=== PATIENT | male | born 1970 | race Caucasian/White ===

== ENCOUNTER 2021-05-23 11:27 | Inpatient (IN) | payer OTHER ==
[2021-05-23 12:14] VITALS: BMI 19.2
[2021-05-23] MEDS ORDERED: ONDANSETRON *ODT* 4 MG TABLET ONE (12:42)
[2021-05-23] MEDS ORDERED: ONDANSETRON *ODT* 4 MG TABLET SL PRN (13:22)
[2021-05-23] MEDS ORDERED: diazePAM 5 MG TABLET PO PRN (13:22)
[2021-05-23] MEDS ORDERED: MAG HYDROX/AL HYDROX/SIMETH 30 ML UNIT-DOSE CUP PO PRN (13:22)
[2021-05-23] MEDS ORDERED: NICOTINE POLACRILEX 2 MG GUM BUC PRN (13:22)
[2021-05-23] MEDS ORDERED: MENTHOL/PHENOL 1 EACH UD MM PRN (13:22)
[2021-05-23] MEDS ORDERED: MAGNESIUM CITRATE 300 ML BOTTLE PO PRN (13:22)
[2021-05-23] MEDS ORDERED: BISMUTH SUBSALICYLATE 524 MG/30 ML PO PRN (13:22)
[2021-05-23] MEDS ORDERED: METHOCARBAMOL 500 MG TABLET PO PRN (13:22)
[2021-05-23] MEDS ORDERED: IBUPROFEN 400 MG TABLET (FP) PO PRN (13:22)
[2021-05-23] MEDS ORDERED: MAGNESIUM HYDROX 2400MG/30ML ORAL SUSPENSION 30 ML CUP PO PRN (13:22)
[2021-05-23] MEDS ORDERED: diazePAM 5 MG TABLET PO ONE (13:22)
[2021-05-23] MEDS ORDERED: ACETAMINOPHEN 325 MG TABLET (FP) PO PRN ×2 (13:22)
[2021-05-23] MEDS ORDERED: TRIMETHOBENZAMIDE HCL 200MG/2ML INJ IM PRN (13:45)
[2021-05-23] MEDS: hydrOXYzine PAMOATE 25 MG CAPSULE (FP) PO SCH ×3 (14:05→22:29)
[2021-05-23] MEDS: NICOTINE 21 MG/24 HOURS TOPICAL PATCH TD SCH (14:05)
[2021-05-23] MEDS: PRENATAL VITAMINS W/ FOLIC ACID TABLET (FP) PO SCH (14:07)
[2021-05-23 15:10] LABS: HEMATOCRIT 35.7 % (35.4-49); HEMOGLOBIN 11.8 GM/dL (11.7-16.9); MCH 27.6 pg (25.7-33.7); MCHC 33.2 g/dl (32.0-35.9); MEAN CELL VOLUME 83.3 fl (80-96); MEAN PLT VOLUME 8.3 fl (7.5-11.1); PLATELET COUNT 180 10^3/uL (134-434); RBC 4.29 M/mm3 (4.00-5.60); RDW 16.9 % (11.9-15.9); WHITE BLOOD COUNT 9.2 K/mm3 (4.0-10.0)
[2021-05-23 15:43] LABS: CALCIUM 9.4 mg/dL (8.5-10.1)
[2021-05-23 15:45] LABS: ALBUMIN 4.8 g/dl (3.4-5.0); BLOOD UREA NITROGEN 10.8 mg/dL (7-18)
[2021-05-23 15:47] LABS: CREATININE 0.8 mg/dL (0.55-1.3)
[2021-05-23 15:48] LABS: BILIRUBIN,TOTAL 0.5 mg/dL (0.2-1)
[2021-05-23 15:50] LABS: TOT PROT 8.1 g/dl (6.4-8.2)
[2021-05-23] MEDS: diazePAM 5 MG TABLET PO SCH ×2 (17:26→22:30)
[2021-05-23] MEDS ORDERED: MIRTAZAPINE 30 MG TABLET PO SCH (22:00)
[2021-05-23] MEDS: THIAMINE HCL 100 MG TABLET (FP) PO SCH (22:29)
[2021-05-23] MEDS: busPIRone HCL 10 MG TABLET (FP) PO SCH (22:30)
[2021-05-23] MEDS: MIRTAZAPINE 15 MG TABLET (FP) PO SCH (22:30)
[2021-05-23] MEDS: MAG HYDROX/ALH/SMC/DPHA/LIDO 240 ML MOUTHWASH MM SCH (22:44)
[2021-05-23] MEDS: MELATONIN 5 MG TABLETS PO SCH (23:08)
[2021-05-24] MEDS: MAG HYDROX/ALH/SMC/DPHA/LIDO 240 ML MOUTHWASH MM SCH ×5 (03:06→23:21)
[2021-05-24] MEDS: diazePAM 5 MG TABLET PO SCH ×4 (06:13→22:04)
[2021-05-24] MEDS: busPIRone HCL 10 MG TABLET (FP) PO SCH ×3 (06:13→22:04)
[2021-05-24] MEDS: hydrOXYzine PAMOATE 25 MG CAPSULE (FP) PO SCH ×5 (06:13→22:04)
[2021-05-24] MEDS: NICOTINE 21 MG/24 HOURS TOPICAL PATCH TD SCH (10:08)
[2021-05-24] MEDS: PRENATAL VITAMINS W/ FOLIC ACID TABLET (FP) PO SCH (10:08)
[2021-05-24] MEDS: MIRTAZAPINE 15 MG TABLET (FP) PO SCH (22:04)
[2021-05-24] MEDS: THIAMINE HCL 100 MG TABLET (FP) PO SCH (22:04)
[2021-05-24] MEDS: MELATONIN 5 MG TABLETS PO SCH (22:33)
[2021-05-25] MEDS: hydrOXYzine PAMOATE 25 MG CAPSULE (FP) PO SCH ×5 (05:26→22:25)
[2021-05-25] MEDS: diazePAM 5 MG TABLET PO SCH ×3 (05:26→22:26)
[2021-05-25] MEDS: busPIRone HCL 10 MG TABLET (FP) PO SCH ×3 (05:26→22:25)
[2021-05-25] MEDS: MAG HYDROX/ALH/SMC/DPHA/LIDO 240 ML MOUTHWASH MM SCH ×4 (05:26→23:30)
[2021-05-25] MEDS: PRENATAL VITAMINS W/ FOLIC ACID TABLET (FP) PO SCH (10:23)
[2021-05-25] MEDS: NICOTINE 21 MG/24 HOURS TOPICAL PATCH TD SCH (10:23)
[2021-05-25] MEDS: MIRTAZAPINE 15 MG TABLET (FP) PO SCH (22:25)
[2021-05-25] MEDS: THIAMINE HCL 100 MG TABLET (FP) PO SCH (22:25)
[2021-05-25] MEDS: MELATONIN 5 MG TABLETS PO SCH (22:25)
[2021-05-26] MEDS: busPIRone HCL 10 MG TABLET (FP) PO SCH ×3 (05:36→22:02)
[2021-05-26] MEDS: diazePAM 5 MG TABLET PO SCH ×2 (05:37→17:45)
[2021-05-26] MEDS: MAG HYDROX/ALH/SMC/DPHA/LIDO 240 ML MOUTHWASH MM SCH ×4 (05:38→23:23)
[2021-05-26] MEDS: hydrOXYzine PAMOATE 25 MG CAPSULE (FP) PO SCH ×5 (05:39→22:02)
[2021-05-26] MEDS: PRENATAL VITAMINS W/ FOLIC ACID TABLET (FP) PO SCH (10:15)
[2021-05-26] MEDS: NICOTINE 21 MG/24 HOURS TOPICAL PATCH TD SCH (10:17)
[2021-05-26] MEDS: MIRTAZAPINE 15 MG TABLET (FP) PO SCH (22:02)
[2021-05-26] MEDS: THIAMINE HCL 100 MG TABLET (FP) PO SCH (22:02)
[2021-05-26] MEDS: MELATONIN 5 MG TABLETS PO SCH (22:03)
[2021-05-27] MEDS ORDERED: diazePAM 5 MG TABLET PO ONE (06:00)
[2021-05-27] MEDS: MAG HYDROX/ALH/SMC/DPHA/LIDO 240 ML MOUTHWASH MM SCH (06:01)
[2021-05-27] MEDS: busPIRone HCL 10 MG TABLET (FP) PO SCH (06:01)
[2021-05-27] MEDS: hydrOXYzine PAMOATE 25 MG CAPSULE (FP) PO SCH ×2 (06:02→09:36)
[2021-05-27 08:37] VITALS: BP 142/90; PULSE 86; TEMP 97.2
[2021-05-27] MEDS: PRENATAL VITAMINS W/ FOLIC ACID TABLET (FP) PO SCH (09:36)
[2021-05-27] MEDS: NICOTINE 21 MG/24 HOURS TOPICAL PATCH TD SCH (09:36)
== END 2021-05-27 09:10 | disposition home or self-care (01) | DRG 775 ==
LOC: YASAS 11:27 → Y3N 12:49
PROVIDERS: ADMIT Allergy & Immunology; ATTEND Allergy & Immunology
PROC: HZ2ZZZZ Detoxification Services for Substance Abuse Treatment (ICD-10-PCS; principal; 2021-05-23)
DX: F10.230 Alcohol dependence with withdrawal, uncomplicated (principal); F17.210 Nicotine dependence, cigarettes, uncomplicated; F19.24 Other psychoactive substance dependence with psychoactive substance-induced mood disorder; F41.1 Generalized anxiety disorder; F43.10 Post-traumatic stress disorder, unspecified; F32.9 Major depressive disorder, single episode, unspecified; G47.00 Insomnia, unspecified; R74.8 Abnormal levels of other serum enzymes; Z56.0 Unemployment, unspecified; Z59.0 Homelessness
CPT/HCPCS: 36415; 80053; 85027; 86780; C9803; Q0162; U0003; U0005